=== PATIENT | male | born 2000 | race Caucasian/White ===

== ENCOUNTER 2020-01-03 21:03 | Emergency (ER) | payer BC, SELFPAY ==
[2020-01-03 21:04] VITALS: BP 158/84; PULSE 109; RESP 14; TEMP 36.5; O2SAT 100; BMI 38.0
--- NOTE | 2020-01-03 21:08 | EKG12_ITS ---
Test Reason : CP Blood Pressure : / mmHG Vent. Rate : 113 BPM Atrial Rate : 113 BPM P-R Int : 150 ms QRS Dur : 086 ms QT Int : 316 ms P-R-T Axes : 035 047 006 degrees QTc Int : 433 ms Sinus tachycardia Otherwise normal ECG Confirmed by LAWRENCE GIBSON ([id number]), features editor MINDY SOLORZANO ([id number] on 01/08/2020 10:29:11 AM Referred By: STEPHEN Confirmed By:LAWRENCE GIBSON
--- NOTE | 2020-01-03 21:08 | ED.RN ---
NO OLD EKGS IN MUSE
--- NOTE | 2020-01-03 21:23 | RAD_ITS ---
STUDY: X-RAY CHEST REASON FOR EXAM: Male, 19 years old. INTERMITTENT CHEST PAIN X 3 WKS, SOB TECHNIQUE: Portable chest COMPARISON: None. FINDINGS: The lungs are clear and expanded. There is no demonstrated pleural abnormality. Normal size heart. Normal mediastinum and reg. Normal visualized pulmonary arteries. Normal visualized aortic arch and descending thoracic aorta. Normal visualized thoracic spine. Normal visualized ribs, clavicles, and shoulders. There is no demonstrated abnormality of the visualized soft tissue structures of the upper abdomen. RAD/Chest 1 View (Portable) IMPRESSION: Normal x-ray examination of the chest. Electronically Signed: Italo Campos, at 21:47 EDT Tel , Service support ,
--- NOTE | 2020-01-03 21:31 | ED.DCSUM_ITS ---
History of Present Illness Chief Complaint: Chest Pain Informant: Patient Narrative: Patient presenting for evaluation secondary to chest pain. Patient is otherwise healthy and takes no medications. He is a non-smoker. He does have a family history of cardiac disease in his mother that was premature. Patient reports that over the course of the last couple of weeks he has been dealing with intermittent chest pain. He reports that this will come and go, is sharp and then wanes and becomes more of a aching type pain. He denies that it is associated with exertion or eating. No diaphoresis shortness of breath lightheadedness or palpitations associated with it. Patient denies any card iovascular risk factors other than the family history, and denies any DVT or PE risk factors. Review of systems otherwise negative. Past Medical History - Allergies and Home Meds Allergies/Adverse Reactions: Allergies No Known Allergies Allergy (Verified 01/03/20 21:06) Primary Care Physician: Florian Arceo DO [Primary Care Provider] - Past Medical History: None Smoking Status: Never smoker Review of Systems All systems negative except as indicated General: Denies: Chills, Fever, Sweats Eyes: Denies: Visual changes - bilaterally, Diplopia ENT: Denies: Rhinorrhea, Sore throat Cardiovascular: Reports: Chest pain. Denies: Palpitations Respiratory: Denies: Dyspnea, Cough, Dyspnea on exertion Gastrointestinal: Denies: Abdominal pain, Nausea, Vomiting, Diarrhea, Melena, Hematochezia Genitourinary: Denies: Dysuria, Hematuria, Frequency Musculoskeletal: Denies: Back pain, Extremity Pain Skin: Denies: Rash, Wounds Neurological: Denies: Headache, Weakness, Numbness Physical Exam Vital Signs/Narrative: Vital Signs Temp Pulse Resp BP Pulse Ox 01/03/20 21:04 97.7 F L 109 H 14 158/84 H 100 Inital Vital Signs reviewed: Yes General: Well nourished, Well developed, Obese, No Acute Distress Head: Normocephalic, Atraumatic Eyes: Perrl, EOMI ENT: Moist mucous membranes, No rhinorrhea Neck: Supple, Nontender Cardiovascular: Regular rhythm, No murmurs, Tachycardia Respiratory: No distress, CTA bilaterally, Chest nontender Abdomen: Soft, Nontender, Nondistended, Normal bowel sounds Back: Nontender, Normal Inspection Extremities: Nontender, No edema Skin: Normal color, No rash Neurological: Alert, Oriented x3, Cranial nerves II-XII grossly intact, Normal Strength, Normal Sensation Psychological: Normal affect, Normal Mood Diagnostic/Tx/Re-eval Clinical Impression(s) from Imaging Studies Chest X-Ray 01/03/20 21:23 IMPRESSION: Normal x-ray examination of the chest. Electronically Signed: Italo Campos, at 21:47 EDT Tel , Service support , Laboratory Data 01/03/20 01/03/20 01/03/20 21:25 21:25 21:25 WBC 12.3 H RBC 5.22 Hgb 15.1 Hct 45.4 MCV 87.0 MCH 28.9 MCHC 33.3 RDW Std Deviation 38.5 RDW Coeff of Becky 12.1 Plt Count 302 MPV 11.0 Immature Gran % (Auto) 0.200 Neut % (Auto) 65.9 Lymph % (Auto) 24.6 [place] % (Auto) 8.5 Eos % (Auto) 0.4 Baso % (Auto) 0.4 Absolute Neuts (auto) 8.1 H Absolute Lymphs (auto) 3.03 Nucleated RBC % 0 D-Dimer Quant (PE/DVT) 0.31 Sodium 141 Potassium 3.4 L Chloride 108 H Carbon Dioxide 26.0 Anion Gap 7 BUN 15 Creatinine 1.01 Estim Creat Clear Calc 128.05 Est GFR (MDRD) Af Amer 121 Est GFR (MDRD) Non-Af 100 BUN/Creatinine Ratio 14.9 Glucose 106 Calcium 9.1 Troponin I < 0.015 - EKG Initial EKG Interpretation: - - Sinus tachycardia with a rate of 113. Isoelectric ST segments normal T waves. Normal [place] and QTc intervals. No evidence of WPW or [place] morphology. - Medical Decision Making Patient presented secondary to chest pain. He was mildly tachycardic so work-up was obtained including PE rule out. CBC chemistry troponin found to be unremarkable. EKG unremarkable other than some mild tachycardia and the patient was having occasional PVCs. Chest x-ray by my personal review as well as radiology is negative. Patient's heart score is low risk, and there is no indication for admission. He has not had any couplets or ventricular arrhythmias other than occasional PVCs. Patient will follow-up with primary care. ED Disposition - Plan for ED Patient: Disposition: Home or Assisted Living Diagnosis: PVC (premature ventricular contraction), Chest pain Instructions: ED Palpitations Referrals: Florian Arceo DO [Primary Care Provider] - 1 Week
[2020-01-03] MEDS: Aspirin 81 MG TAB.CHEW 324 MG PO (21:32)
[2020-01-03 21:35] LABS: Absolute Lymphocyte Count 3.03 X10^3/uL (0.83-4.51); Absolute Neutrophil Count 8.1 X10^3/uL (2.0-7.7); Basophil# 0.05 X10^3/uL; Basophil% 0.4 % (0-1); Eosinophil# 0.05 X10^3/uL; Eosinophils% 0.4 % (0-5); Hematocrit 45.4 % (40-54); Hemoglobin 15.1 g/dL (13.0-16.5); Lymphocyte # 3.03 X10^3/ul (4.0); Lymphocyte % 24.6 % (19-41); Mean Corp Hgb Conc 33.3 g/dL (32-36); Mean Corpuscular Hgb 28.9 pg (27.0-32.0); Monocyte# 1.04 X10^3/uL; Monocyte% 8.5 % (0-10); NRBC Flagged by Analyzer 0 % (0-5); Neutrophil % 65.9 % (47-70); Platelet Count 302 K/mm3 (150-450); RBC Distribution Width CV 12.1 % (11.6-14.6); RBC Distribution Width SD 38.5 fl (35.1-43.9); Red Blood Count 5.22 M/mm3 (4.6-6.2); White Blood Count 12.3 K/mm3 (4.4-11.0)
[2020-01-03 21:47] LABS: D-Dimer Quantitative (DVT/PE) 0.31 FEU/ug/m (0.27-0.49)
[2020-01-03 21:52] LABS: Anion Gap 7 (5-15); BUN 15 mg/dL (7-18); BUN/Creat Ratio 14.9 RATIO (10-20); Calcium,Total 9.1 mg/dL (8.5-10.1); Chloride 108 mmol/L (98-107); Creatinine, Serum 1.01 mg/dL (0.70-1.30); EST Glomerular Filtration Rate 100 mL/min (>60); Est Glom Filt Rate - Afr Amer 121 mL/min (>60); Estimated Creatinine Clearance 128.05 ml/min; Glucose 106 mg/dL (74-106); Potassium 3.4 mmol/L (3.5-5.1); Sodium Level 141 mmol/L (136-145)
[2020-01-03 22:32] VITALS: BP 142/76; PULSE 77; RESP 18; O2SAT 98
== END 2020-01-03 22:33 | disposition home or self-care (01) ==
PROVIDERS: Emergency Provider Emergency Medicine; PCP Pediatrics
DX: I49.3 Ventricular premature depolarization (principal); R07.9 Chest pain, unspecified; E66.9 Obesity, unspecified
CPT/HCPCS: 71045; 80048; 84484; 85025; 85379; 93005; 99285; A4216